=== PATIENT | male | born 1950 | race Caucasian/White ===

== ENCOUNTER 2018-11-27 22:57 | Inpatient (IN) | payer MEDICARE ==
[~2018-11-27] VITALS: Ht 182.9 cm; Wt 98.0 kg
[~2018-11-27 22:57] MED LIST: ASPIRIN81 MG PO; AUGMENTIN875TAB PO; GLYB/METFO5 MG/500 M OR; LEVEMIR1000 UNITS SC; SIMVASTATIN20 MG PO; ZESTRIL5 MG PO
--- NOTE | 2018-11-27 22:58 | NUR ---
BY WC TO ROOM
[2018-11-27] MEDS ORDERED: LOSARTAN POT50 MG PO (23:47)
[2018-11-27] MEDS ORDERED: LANTUS SOLOSTAR SC (23:47)
[2018-11-27] MEDS ORDERED: TOPROL XL25 M1 PO (23:48)
[2018-11-27] MEDS ORDERED: LEVOTHYROXIN100 MCG PO (23:50)
[2018-11-27] MEDS ORDERED: CIPRODEX1 ML OT (23:52)
[2018-11-27 23:56] LABS: HEMOGLOBIN 11.3 g/dl (14.0-18.0); IMMATURE GRANULOCYTES 0.2 % (0.0-5.0); MEAN CELL VOLUME 95.2 fL CALC (80.0-100.0); MEAN CORPUSCULAR HGB 31.7 pG CALC (26.0-32.0); MEAN CORPUSCULAR HGB CONC 33.2 g/L CALC (32.0-36.0); NEUT# 3.53 thou/uL (1.82-7.42); RED BLOOD COUNT 3.57 mill/uL (4.70-6.10); RED CELL DISTRI WIDTH 13.1 % (11.5-15.5)
--- NOTE | 2018-11-28 00:10 | NUR ---
NUMBNESS RESOLVED. STATES NO DIZZINESS....JUST LIKE A LOSS OF BALANCE WHEN HE STANDS UP.
[2018-11-28 00:14] LABS: ALBUMIN 4.3 g/dL (3.2-5.0); ALKALINE PHOSPHATASE 50 u/l (38-126); ANION GAP 12 (6-22 (CALC)); BILIRUBIN, TOTAL 0.3 mg/dL (0.0-1.4); BUN 20 mg/dL (8-23); BUN/CREATININE RATIO 15 (12-20 (CALC)); CARBON DIOXIDE 28 mmol/l (22-30); CHLORIDE 107 mmol/l (95-108); CREATININE 1.4 mg/dL (0.7-1.3); GFR 50 ML/MIN (>=60 (CALC)); GFR FOR AFR.AMER. > 60 ML/MIN (>=60 (CALC)); POTASSIUM 4.3 mmol/l (3.5-5.1); SGOT/AST 26 u/l (19-48); SODIUM 142 mmol/l (137-146); TOTAL PROTEIN 7.2 g/dL (6.3-8.2)
[2018-11-28 00:27] LABS: MYOGLOBIN 88 ng/mL (0 - 121)
--- NOTE | 2018-11-28 03:49 | NUR ---
PT UNABLE TO VOID AT THIS TIME. DECLINED CATH. BLOOD CULUTURES DRAWN AND ANTIBIOTICS UP.
--- NOTE | 2018-11-28 06:04 | NUR ---
ABE AWARE OF NO U/O YET.
--- NOTE | 2018-11-28 06:04 | NUR ---
REPORT TO ABE, NURSE MED SURG
--- NOTE | 2018-11-28 06:18 | NUR ---
TO FLOOR AFTER GIVEN CLONIDINE PO FOR BP.
--- NOTE | 2018-11-28 06:27 | NUR ---
PT ARRIVED TO THE FLOOR VIA STRETCHER ACCOMPANIED BY ED NURSE. PT APPEARS TO BE IN STABLE CONDITION AT THIS TIME. NO S/O DISTRESS. PT ORIENTED TO CALL SYSTEM, LIGHTS, BED, ROOM, TV.
[2018-11-28 06:38] VITALS: BP 193/82
[2018-11-28 07:42] LABS: URINE BILIRUBIN - DIPSTICK NEGATIVE (NEGATIVE); URINE BLOOD DIPSTICK SMALL (NEGATIVE); URINE COLOR YELLOW; URINE GLUCOSE - DIPSTICK 100 mg/dL (NEGATIVE); URINE KETONE NEGATIVE (NEGATIVE); URINE LEUK ESTERASE NEGATIVE (NEGATIVE); URINE NITRITE - DIPSTICK NEGATIVE (Negative); URINE PROTEIN - DIPSTICK >=300 mg/dL (NEG-TRACE); URINE SPECIFIC GRAVITY >=1.030; URINE UROBILINOGEN - DIPSTICK 0.2 E.U./dL (0.2)
[2018-11-28 07:46] LABS: BARBITURATES NEGATIVE (NEGATIVE); COCAINE NEGATIVE (NEGATIVE); METHADONE NEGATIVE (NEGATIVE); TETRAHYDROCANNABIONOL NEGATIVE (NEGATIVE); TRICYLIC ANTIDEPRESSANTS NEGATIVE (NEGATIVE)
[2018-11-28 07:47] LABS: OXCYCODONE NEGATIVE (NEGATIVE); URINE RBC 0-2 RBC/hpf (0-5); URINE WBC 0-2 WBC/hpf (0-5)
[2018-11-28 08:34] VITALS: BP 123/61
--- NOTE | 2018-11-28 08:59 | NUR ---
ASSESSMENT DONE. PT IS A&O X3. PT DENIES PAIN AT THIS TIME. RESPS EVEN AND UNLABORED. IVF INFUSING WELL. TELE IN PLACE. PT DENIES NEEDS AT THIS TIME. SAFETY PRECAUTIONS REINFROCED AND CALL LIGHT IN REACH.
--- NOTE | 2018-11-28 11:52 | NUR ---
PT IS EATING HIS LUNCH WITH NO S/S OF DISTRESS NOTED. PT STATED LEFT ARM NUMBESS COMES AND GOES. PT ABLE TO MOVE ARM. PT DENIES PAIN OR NEEDS AT THIS TIME. CALL LIGHT IN REACH.
[2018-11-28 15:51] VITALS: BP 167/68
--- NOTE | 2018-11-28 15:59 | NUR ---
PT IS VISITING WITH FRIEND IN ROOM WITH NO S/S OF DISTRESS NOTED. CALL LIGHT IN REACH.
--- NOTE | 2018-11-28 18:40 | NUR ---
PT DID A SKIN TEAR TO HIS LEFT ARM PICTURE TAKEN AND DRESSING APPLIED. PT DENEIS ANY OTHER NEEDS. CALL LIGHT IN REACH.
--- NOTE | 2018-11-28 19:35 | NUR ---
RECEIVED REPORT FROM NURSE PEREZ PATIENT SITTING IN BED WATCHING TV NO DISCOMFORTS NOTED AT THIS TIME, REMAINS ON DROPLET PRECAUTION FOR FLU, CALL LIGHT AT REACH.
[2018-11-28 19:57] VITALS: BP 160/71
--- NOTE | 2018-11-28 21:00 | NUR ---
PATIENT ALERT AND ORIENTED ABLE TO MAKE NEEDS KNOWN, DENIES PAIN OR DISCOMFORT ON DROPLET PRECAUTION, WITH AN ONGOING IV NORMAL SALINE @125CC/HR INFUSING WELL ON RAC, ON TELE SB 54, WILL CONTINUE TO MONITOR CALL LIGHT AT REACH.
[2018-11-28 23:41] VITALS: BP 158/79
[2018-11-29] VITALS (7 sets, daily range): BP systolic 145–172; BP diastolic 63–88
--- NOTE | 2018-11-29 00:53 | NUR ---
PATIENT APPEARS TO BE SLEEPING IN BED, WITH EYES CLSED, NO DISCOMFORTS NOTED AT THIS TIME, WITH EVEB UNLABORED BREATHING CALL LIGHT WITHIN REACH.
--- NOTE | 2018-11-29 05:14 | NUR ---
BP 170/92, ASYMPTOMATIC, DENIES PAIN OR DISCOMFORTS LOSARTAN AND METOPROLOL GIVEN WILL RECHECK BP.
[2018-11-29 05:44] LABS: HEMATOCRIT 32.7 % (39.0-50.0); HEMOGLOBIN 10.8 g/dl (14.0-18.0); IMMATURE GRANULOCYTES 0.5 % (0.0-5.0); MEAN CELL VOLUME 95.9 fL CALC (80.0-100.0); MEAN CORPUSCULAR HGB 31.7 pG CALC (26.0-32.0); NEUT# 4.6 thou/uL (1.82-7.42); RED BLOOD COUNT 3.41 mill/uL (4.70-6.10); RED CELL DISTRI WIDTH 12.8 % (11.5-15.5)
[2018-11-29 06:09] LABS: ALBUMIN 3.6 g/dL (3.2-5.0); ALKALINE PHOSPHATASE 37 u/l (38-126); ANION GAP 13 (6-22 (CALC)); BILIRUBIN, TOTAL 0.4 mg/dL (0.0-1.4); BUN 20 mg/dL (8-23); BUN/CREATININE RATIO 18 (12-20 (CALC)); CARBON DIOXIDE 23 mmol/l (22-30); CHLORIDE 109 mmol/l (95-108); CREATININE 1.1 mg/dL (0.7-1.3); GFR > 60 ML/MIN (>=60 (CALC)); GFR FOR AFR.AMER. > 60 ML/MIN (>=60 (CALC)); POTASSIUM 4.4 mmol/l (3.5-5.1); SGOT/AST 24 u/l (19-48); SODIUM 141 mmol/l (137-146); TOTAL PROTEIN 6.4 g/dL (6.3-8.2)
--- NOTE | 2018-11-29 07:15 | NUR ---
PT REPORT RECIEVED FROM JAKE MENDEZ. PT SLEEPING. NO S/S OF DISTRESS. CALL LIGHT IN REACH. WILL CONTINUE TO MONITOR.
--- NOTE | 2018-11-29 08:58 | NUR ---
PT A/O X3. SPEECH IS CLEAR. RESP EVEN AND UNLABORED. LUNG SOUNDS CLEAR. TELE IN PLACE. BOWEL SOUNDS ACTIVE X4. STRONG RADIAL AND PEDAL PULSES. #18 RAC NS @100. SITE APPEARS HEALTHY. PT HAS A HEALING LT ARM SKIN TEAR. PT DENIES ANY PAIN; BUT C/O IMBALANCE WHEN AMBULATING. DISCUSSED W/ PT I WILL LET MD KNOW. PT STATES UNDERSTANDING. SAFETY PRECAUTIONS IN PLACE. DROPLET PRECAUTIONS. CALL LIGHT IN REACH. WILL CONTINUE TO MONITOR.
--- NOTE | 2018-11-29 11:38 | NUR ---
PT EATING LUNCH. NO C/O PAIN OR NEEDS. CALL LIGHT IN REACH. WILL CONTINUE TO MONITOR.
--- NOTE | 2018-11-29 12:09 | NUR ---
PT HAVING SOME NAUSEA, VOMITED 20 CC OF CLEAR YELLOW FLUID. MEDICATED W/ 4 MG ZOFRAN IV. COOL CLOTH APPLIED TO FOREHEAD. WILL CONTINUE TO MONITOR.
--- NOTE | 2018-11-29 16:00 | NUR ---
PT WATCHING TELEVISION. NO C/O PAIN OR NEEDS. IV FLUIDS INFUSING. CALL LIGHT IN REACH. WILL CONTINUE TO MONITOR.
--- NOTE | 2018-11-29 19:00 | NUR ---
RECEIVED REPORT FROM NURSE ABRAHAM, PATIENT RESTING IN BED, EYES CLOSED, CALL LIGHT AT REACH.
--- NOTE | 2018-11-29 20:00 | NUR ---
PATIENT ALERT AND ORIENTED, ABLE TO MAKE NEEDS KNOWN, REMAINS ON DROPLET PRECAUTION FOR STREP INFECTION, DENIES PAIN OR DISCOMFORTS, WITH AN ONGOING IV OF NORMAL SALINE @KVO, REMAINS ON TELE MONITORING, LAST BM 11/27, CALL LIGHT AT REACH.
[2018-11-30] VITALS (7 sets, daily range): BP systolic 146–172; BP diastolic 65–79
--- NOTE | 2018-11-30 | NUR ---
PATIENT APPEARS TO BE SLEEPING WITH EYES CLOSED, NOTED TO HAVE EVEN UNLABORED BREATHING CALL LIGHT AT REACH
--- NOTE | 2018-11-30 05:22 | NUR ---
PATIENT ALERT AND ORIENTED, DENIES PAIN OR DISCOMFORT, WITH EVEN UNLABORED BREATHING, ASSISTED TO SHOWER CALL LIGHT AT REACH.
--- NOTE | 2018-11-30 07:20 | NUR ---
PT REPORT RECIEVED FROM JAKE COLLADO. PT WATCHING TELEVISION. NO S/S OF DISTRESS. CALL LIGHT IN REACH. WILL CONTINUE TO MONITOR.
--- NOTE | 2018-11-30 08:01 | NUR ---
PT A/O X3. SPEECH IS CLEAR. RESP EVEN AND UNLABORED. LUNG SOUNDS CLEAR. TELE IN PLACE. NONPRODUCTIVE COUGH. LEJ NS @KVO. SITE APPEARS HEALTHY. BOWEL SOUNDS ACTIVE X4. STRONG RADIAL AND PEDAL PULSES. PT HAS A HEALING SKIN TEAR TO LFA. SCABBINGS NOTED TO BLE. PT DENIES ANY PAIN OR NEEDS. POC DISCUSSED. SAFETY PRECAUTIONS IN PLACE. CALL LIGHT IN REACH. WILL CONTINUE TO MONITOR.
--- NOTE | 2018-11-30 12:12 | NUR ---
PT ON PHONE. NO C/O PAIN OR NEEDS. CALL LIGHT IN REACH. WILL CONTINUE TO MONITOR.
--- NOTE | 2018-11-30 16:32 | NUR ---
PT WATCHING TELEVISION. NO C/O PAIN OR NEEDS. CALL LIGHT IN REACH. WILL CONTINUE TO MONITOR.
--- NOTE | 2018-11-30 19:28 | NUR ---
PT IS IN HIGH FOWLERS POSITION W/CALL LIGHT IN HAND. REPORT HAS BEEN RECEIVED FROM DAY NURSE. POC DISCUSSED W/PT AND DAY NURSE AT BEDSIDE. PT DENIES ANY OTHER NEEDS AT THIS TIME. PT ENCOURAGED TO CALL NEEDS ARISE.
--- NOTE | 2018-11-30 20:33 | NUR ---
PT ASSESSED, BP 172/79,HR61. ATTEMPTED TO MEDICATE PT W/PRN MEDICATION HYDRALAZINE/PT REFUSED MEDICATION. I PROVIDED VERBAL EDUCATION TO PT REGARDING ELEVATED BP PHYSICIANS RECOMMENDATION FOR MEDICATION FOR SBP >170. PT REFUSED MEDICATION. WILL CONTINUE TO MONITOR. LUNG SOUNDS ARE CLEAR FOR ME, ABD SOFT NON-TENDER, REPORTS 1X STOOL THIS AFTERNOON, REPORTS NORMAL URINATION W/OUT DIFFICULTY OR PAIN. SKIN APPEARS INTACT, NEURO'S APPEAR INTACT. NO EDEMA NOTED. PT DENIES ANY OTHER NEEDS OF ASSISTANCE AT THIS TIME. CALL LIGHT IS AT SIDE AND PT HAS BEEN ENCOURAGED TO CALL NEEDS ARISE.
--- NOTE | 2018-11-30 23:50 | NUR ---
PT MEDICATED W/PO ANTIBIOTIC THERAPY ORDERS PROVIDE. V/S ARE BEING ASSESSED AT THIS TIME. IVF ARE RUNNING KVO. PT WAS SLEEPING WE ENTERED THE ROOM. DENIES ANY OTHER NEEDS AT THIS TIME. CALL LIGHT AT SIDE.
--- NOTE | 2018-11-30 23:58 | NUR ---
PT MEDICATED FOR ELEVATED BP. DENIES ANY OTHER NEEDS.
[2018-12-01] VITALS (9 sets, daily range): BP systolic 147–181; BP diastolic 70–85
--- NOTE | 2018-12-01 04:55 | NUR ---
PT MEDICATED W/IV HYDRALAZINE FOR ELEVATED BP. PT STATES THAT HE IS A LITTLE NAUSIATED, BUT REFUSED ZOFRAN STATING THAT IT DIDN'T HELP EARLIER TODAY WHEN GIVEN. PT PROVIDED EMESIS BAG AND WARM WASHCLOTH FOR COMFORT MEASURES. DENIES ANY OTHER NEEDS, DENIES ICE-CHIPS. CALL LIGHT AT SIDE AND PT ENCOURAGED TO CALL.
--- NOTE | 2018-12-01 07:10 | NUR ---
REPORT RECEIVED FROM ABERN;PT RESTING IN SEMI FOWLERS POSITION;INTRODUCED SELF TO PT AND POC DISCUSSED;RESPIRATIONS EVEN AND UNLABORED ON RA;PT DENIES ANY CURRENT PAIN OR DISCOMFORTS,PAIN SCALE AND REPORTING EDUCATED;TELE MONITORING IN PLACE;IV FLUIDS INFUSING TO LEJ WITH EASE;ACCUCHECK 140, NO COVERAGE NEEDED AT THIS TIME;PT ENCOURAGED TO CALL FOR ASSISTANCE IF NEEDED;FALL PRECAUTIONS IN PLACE WITH BED IN THE LOWEST POSITION AND CALL LIGHT IN REACH;WILL CONTINUE TO MONITOR
--- NOTE | 2018-12-01 08:20 | NUR ---
PT RESTING IN SEMI FOWLERS POSITION TALKING ON THE PHONE, A&O X4;VS OBTAINED AND ASSESSMENT COMPLETED, CURRENT BP 181/75 HR 64. ALL MORNING MEDICATION TO BE ADMINISTERED;PT DENIES ANY CURRENT PAIN BUT DOES REPORT CONTINUED NUMBESS TO LEFT ARM, MOPHEAD SEWER REMAINS STRONG AND CAP REFILL LESS THAN 3 SECONDS;RESPIRATIONS EVEN AND UNLABORED ON RA,CLEAR LUNG SOUNDS;ABDOMEN SOFT ON PALPATION AND ACTIVE IN ALL 4 QUADRANTS;WEAK PEDAL PULSES;SKIN INTACT;TELE MONITORING IN PLACE;#20G TO LEJ INFUSING NS @ KVO PER ORDER;PT DENIES ANY ADDITIONAL NEEDS AND IS ENCOURAGED TO CALL FOR ASSISTANCE IF NEEDED;CALL LIGHT IN REACH;WILL CONTINUE TO MONITOR
--- NOTE | 2018-12-01 11:15 | NUR ---
PT RESTING IN SEMI FOWLERS POSITION WATCHING TV;RESPIRATIONS EVEN AND UNLABORED ON RA;PT DENIES ANY CURRENT PAIN OR DISCOMFORTS;IV FLUIDS INFUSING TO LEJ WITH EASE;TELE MONITORING IN PLACE;ACCUCHECK 153, PT COVERED WITH SLIDING SCALE NOVOLOG PER ORDER;ENCOURAGED TO CALL FOR ASSISTANCE IF NEEDED;CALL LIGHT IN REACH;WILL CONTINUE TO MONITOR
--- NOTE | 2018-12-01 13:41 | NUR ---
PHYSICAL THERAPY AT BEDSIDE
--- NOTE | 2018-12-01 13:46 | NUR ---
Upon entering room patient was resting in bed. He reports feeling tired and refused physical therapy. Evaluating PT informed of same.
--- NOTE | 2018-12-01 13:59 | NUR ---
PT TRANSPORTED TO [facility] IN STABLE CONDITION VIA WHEELCHAIR ACCOMPANIED BY VOLUNTEER.
--- NOTE | 2018-12-01 14:30 | NUR ---
PT RETURNED TO [facility] VIA WHEELCHAIR IN STABLE CONDITION ACCOMPANIED BY VOLUNTEER.
--- NOTE | 2018-12-01 15:50 | NUR ---
PT APPEARS TO BE SLEEPING IN SEMI FOWLERS POSITION;RESPIRATIONS EVEN AND UNLABORED ON RA;NO S/S OF DISTRESS NOTED;TELE MONITORING IN PLACE;#20G TO LEJ INFUSING NS @ KVO PER ORDER;ALL SAFETY PRECAUTIONS IN PLACE WITH BED IN THE LOWEST POSITION AND CALL LIGHT IN REACH;WILL CONTINUE TO MONITOR
--- NOTE | 2018-12-01 19:45 | NUR ---
PT ASSESSED AND POC DISCUSSED W/PT. NO NEW EDEMA NOTED, LUNG SOUNDS ARE CLEAR, ABD SOFT NON-TENDER W/ACTIVE BOWEL SOUNDS. REPORTS STOOL X2 THIS DAY. DENIES ANY NEEDS AT THIS TIME OR ANY NEW SYMPTOMS. WILL CONTINUE TO MONITOR FOR BP AND NEEDS. CALL LIGHT AT SIDE AND PT ENCOURAGED TO CALL IF HE NEEDS TO GET UP OR IF ANY NEEDS ARISE.
--- NOTE | 2018-12-02 00:14 | NUR ---
PT MEDICATED W/PO ANTIBOTIC THERAPY ORDERS PROVIDE. PT DENIES ANY OTHER NEEDS AIDE IS IN W/PT OBTAINING V/S. CALL LIGHT AT SIDE AND PT ENCOURAGED TO CALL
[2018-12-02 00:25] VITALS: BP 155/69
--- NOTE | 2018-12-02 03:15 | NUR ---
PT SLEEPING SOUNDLY NO S/O DISTRESS NOTED. CALL LIGHT AT SIDE.
[2018-12-02 05:09] VITALS: BP 173/79
[2018-12-02 06:10] VITALS: BP 154/71
--- NOTE | 2018-12-02 06:10 | NUR ---
ED CALLED TO REPORT 23 BEAT RUN OF V-TACH ON DYER ASSISTANT. PT ASSESSED, DENIES ANY PALPATATIONS, HEART RACING, SOB, SWEATS, PAIN OR ANY OTHER SYMPTOMS. V/S ASSESSED @ HR67, BP154/71, 02SATS 100%, RESP 16 PT DENIES ANY NEEDS AT THIS TIME. WILL NOTIFY PHYSICIAN.
--- NOTE | 2018-12-02 07:15 | NUR ---
PT REPORT RECIEVED FROM JAKE FISH. PT SLEEPING. NO S/S OF DISTRESS. CALL LIGHT IN REACH. WILL CONTINUE TO MONITOR.
[2018-12-02 07:52] VITALS: BP 173/85
--- NOTE | 2018-12-02 07:52 | NUR ---
PT A/O X3. SPEECH IS CLEAR. RESP EVEN AND UNLABORED. LUNG SOUNDS CLEAR. TELE IN PLACE. PT C/O NAUSEA. MEDICATED W/ 4 MG ZOFRAN IV. BOWEL SOUNDS ACTIVE X4. STRONG RADIAL AND PEDAL PULSES. SKIN INTACT. #20 LEJ NS @KVO. SITE APPEARS HEALTHY. PT DENIES ANY PAIN OR NEEDS. CALL LIGHT IN REACH. WILL CONTINUE TO MONITOR.
[2018-12-02] MEDS ORDERED: PLAVIX75 MG PO (08:37)
[2018-12-02] MEDS ORDERED: AMOX/K CLAV875 M1 PO (08:37)
[2018-12-02] MEDS ORDERED: ADLT ASA LOW81 MG PO (08:37)
[2018-12-02] MEDS ORDERED: AMLODIPINE BESYL5 MG PO (08:37)
[2018-12-02 09:50] VITALS: BP 155/74
--- NOTE | 2018-12-02 10:48 | NUR ---
Entered pt. room, pt. in supine position and agreed to participate in therapy session. Supine to sit (Independent), sit to stand (CGA) pt. LOB to left as he ascends to a standing position, VC for correct hand placement. Gait training with FWW, (CGA) pt. has LOB to left as we ambulate 80 feet. Pt. looks down as we ambulate, VC for head up and pt. looses balance as he raises head. Stand to sit(CGA) Vc for correct hand placement as he descends to a seated position. Sit to supine (Independent). Tray table and call velázquez by pt. side within pt. reach. AM PAC 6 score remains unchanged.
[2018-12-02 12:00] VITALS: BP 155/66
--- NOTE | 2018-12-02 14:35 | NUR ---
d/c instructions discussed w/ pt. pt states understanding. iv removed. catheter intact. pt getting dressed.
--- NOTE | 2018-12-02 14:50 | NUR ---
Discharge instructions given. Patient verbalizes understanding of same. Discharged in stable condition via [facility] with *Other. All belongings sent with pt.
--- NOTE | 2018-12-02 14:53 | NUR ---
DR. DE LA CRUZ MADE AWARE OF PT 12 PM TELE READING AFIBB 60. PT CURRENTLY AT RESIDENTIAL.
== END 2018-12-02 14:36 | DRG 64 ==
LOC: ED 22:57 → ED-I 11-28 05:19 → ED 11-28 05:42 → MS2 11-28 05:43
PROVIDERS: Emergency Medicine; ADMIT Internal Medicine; ATTEND Internal Medicine
DX: I63.9 Cerebral infarction, unspecified (principal); J18.9 Pneumonia, unspecified organism; J02.0 Streptococcal pharyngitis; I25.10 Atherosclerotic heart disease of native coronary artery without angina pectoris; E11.22 Type 2 diabetes mellitus with diabetic chronic kidney disease; I12.9 Hypertensive chronic kidney disease with stage 1 through stage 4 chronic kidney disease, or unspecified chronic kidney disease; N18.3 Chronic kidney disease, stage 3 (moderate); H61.22 Impacted cerumen, left ear; R20.0 Anesthesia of skin; R42 Dizziness and giddiness; R26.81 Unsteadiness on feet; Z95.5 Presence of coronary angioplasty implant and graft; Z79.4 Long term (current) use of insulin

== ENCOUNTER → 2021-01-17 | Outpatient (REF) | payer MEDICARE ==
[~2021-01-17] MED LIST changes: +ADLT ASA LOW81 MG PO; +AMLODIPINE BESYL5 MG PO; +AMOX/K CLAV875 M1 PO; +CIPRODEX1 ML OT; +LANTUS SOLOSTAR SC; +LEVOTHYROXIN100 MCG PO; +LOSARTAN POT50 MG PO; +PLAVIX75 MG PO; +TOPROL XL25 M1 PO
[2021-01-17 08:35] LABS: HEMATOCRIT 35.1 % (39.0-50.0); HEMOGLOBIN 11.3 g/dl (14.0-18.0); MEAN CELL VOLUME 98.9 fL CALC (80.0-100.0); MEAN CORPUSCULAR HGB 31.8 pG CALC (26.0-32.0); MEAN CORPUSCULAR HGB CONC 32.2 g/dL CAL (32.0-36.0); RED BLOOD COUNT 3.55 mill/uL (4.70-6.10)
[2021-01-17 09:14] LABS: ALBUMIN 4.3 g/dL (3.2-5.0); BILIRUBIN, TOTAL 0.4 mg/dL (0.0-1.4); CHOLESTEROL HDL RATIO 5.9 (<4.4 (CALC)); CREATININE 1.6 mg/dL (0.7-1.3); POTASSIUM 4.4 mmol/l (3.5-5.1); TOTAL PROTEIN 7.1 g/dL (6.3-8.2)
[2021-01-17 09:42] LABS: TSH, 3RD GENERATION 5.01 uIU/mL (0.47 - 4.68)
== END | disposition home or self-care (01) ==
LOC: LAB 07:31
PROVIDERS: ATTEND Nurse Practitioner
DX: E11.40 Type 2 diabetes mellitus with diabetic neuropathy, unspecified (principal); E78.49 Other hyperlipidemia; I12.9 Hypertensive chronic kidney disease with stage 1 through stage 4 chronic kidney disease, or unspecified chronic kidney disease; N18.30 Chronic kidney disease, stage 3 unspecified; Z12.5 Encounter for screening for malignant neoplasm of prostate

== ENCOUNTER 2021-07-22 03:29 | Emergency (ER) | payer MEDICARE ==
[~2021-07-22] VITALS: Ht 188 cm; Wt 95.0 kg
[2021-07-22] VITALS (11 sets, daily range): BP systolic 144–160; BP diastolic 91–103
[~2021-07-22 03:29] MED LIST changes: +LANTUS SOL100 UNIT/M SC; -LANTUS SOLOSTAR SC; -LEVOTHYROXIN100 MCG PO; +LEVOTHYROXIN125 MC1 PO
[2021-07-22 04:21] LABS: HEMATOCRIT 36.7 % (39.0-50.0); HEMOGLOBIN 11.4 g/dl (14.0-18.0); IMMATURE GRANULOCYTES 0.5 % (0.0-5.0); MEAN CELL VOLUME 101.9 fL CALC (80.0-100.0); MEAN CORPUSCULAR HGB 31.7 pG CALC (26.0-32.0); MEAN CORPUSCULAR HGB CONC 31.1 g/dL CAL (32.0-36.0); NEUT# 3.37 thou/uL (1.82-7.42); RED BLOOD COUNT 3.6 mill/uL (4.70-6.10); RED CELL DISTRI WIDTH 15.5 % (11.5-15.5)
[2021-07-22 04:40] LABS: ALBUMIN 3.8 g/dL (3.2-5.0); BILIRUBIN, TOTAL 0.5 mg/dL (0.0-1.4); CREATININE 1.8 mg/dL (0.7-1.3); POTASSIUM 4.2 mmol/l (3.5-5.1); TOTAL PROTEIN 6.6 g/dL (6.3-8.2)
[2021-07-22 06:14] LABS: URINE BILIRUBIN - DIPSTICK NEGATIVE (NEGATIVE); URINE BLOOD DIPSTICK MODERATE (NEGATIVE); URINE COLOR YELLOW; URINE GLUCOSE - DIPSTICK 100 mg/dL (NEGATIVE); URINE KETONE NEGATIVE (NEGATIVE); URINE PH 5.5 (4.5-8.0); URINE PROTEIN - DIPSTICK >=300 mg/dL (NEG-TRACE); URINE SPECIFIC GRAVITY >=1.030; URINE UROBILINOGEN - DIPSTICK 0.2 E.U./dL (0.2)
[2021-07-22 06:21] LABS: URINE LEUK ESTERASE NEGATIVE (NEGATIVE); URINE NITRITE - DIPSTICK NEGATIVE (Negative)
[2021-07-22] MEDS ORDERED: KEFLEX500 MG PO (06:21)
[2021-07-22] MEDS ORDERED: CLOTRIMAZOLE TOP (06:21)
[2021-07-22 06:25] LABS: URINE AMORPH SEDIMENT MANY hpf (NONE-FER); URINE EPITHELIAL CELLS FEW EPI/hpf (0-FEW)
[2021-07-22 06:26] LABS: URINE BACTERIA MANY hpf
== END 2021-07-22 07:04 | disposition home or self-care (01) ==
LOC: ED 03:29
DX: N48.1 Balanitis (principal); N39.0 Urinary tract infection, site not specified; E11.9 Type 2 diabetes mellitus without complications; I10 Essential (primary) hypertension; I25.2 Old myocardial infarction; Z86.16 Personal history of COVID-19; Z95.5 Presence of coronary angioplasty implant and graft; Z79.4 Long term (current) use of insulin

== ENCOUNTER 2021-07-25 09:44 | Observation (INO) | payer MEDICARE ==
[~2021-07-25] VITALS: Ht 188 cm; Wt 100.0 kg
[2021-07-25] VITALS (53 sets, daily range): BP systolic 130–170; BP diastolic 76–145
[~2021-07-25 09:44] MED LIST changes: +CLOTRIMAZOLE TOP; +KEFLEX500 MG PO
[2021-07-25 10:30] LABS: HEMATOCRIT 40.5 % (39.0-50.0); HEMOGLOBIN 12.4 g/dl (14.0-18.0); IMMATURE GRANULOCYTES 0.2 % (0.0-5.0); MEAN CELL VOLUME 102.3 fL CALC (80.0-100.0); MEAN CORPUSCULAR HGB 31.3 pG CALC (26.0-32.0); MEAN CORPUSCULAR HGB CONC 30.6 g/dL CAL (32.0-36.0); NEUT# 4.79 thou/uL (1.82-7.42); RED BLOOD COUNT 3.96 mill/uL (4.70-6.10); RED CELL DISTRI WIDTH 15.9 % (11.5-15.5)
[2021-07-25 10:41] LABS: ALBUMIN 4.2 g/dL (3.2-5.0); BILIRUBIN, TOTAL 0.7 mg/dL (0.0-1.4); CREATININE 1.6 mg/dL (0.7-1.3); POTASSIUM 4.1 mmol/l (3.5-5.1); TOTAL PROTEIN 7.3 g/dL (6.3-8.2)
[2021-07-25 10:50] LABS: ACT PARTIAL THROMBO TIME 24.7 SECONDS (20.0-32.5); INTERNATIONAL NORMALIZED RATIO 1.1 RATIO (0.7-1.3); PROTHROMBIN TIME 11.2 SECONDS (9.0-12.5)
[2021-07-25] MEDS ORDERED: BRIMONIDINE0.2 % OS (11:42)
[2021-07-25 11:56] LABS: URINE BILIRUBIN - DIPSTICK NEGATIVE (NEGATIVE); URINE BLOOD DIPSTICK MODERATE (NEGATIVE); URINE GLUCOSE - DIPSTICK NEGATIVE (NEGATIVE); URINE KETONE NEGATIVE (NEGATIVE); URINE LEUK ESTERASE NEGATIVE (NEGATIVE); URINE PROTEIN - DIPSTICK >=300 mg/dL (NEG-TRACE); URINE SPECIFIC GRAVITY >=1.030; URINE UROBILINOGEN - DIPSTICK 0.2 E.U./dL (0.2)
[2021-07-25 11:59] LABS: URINE NITRITE - DIPSTICK NEGATIVE (Negative)
[2021-07-25 12:00] LABS: URINE COLOR DK. YELLOW; URINE EPITHELIAL CELLS FEW EPI/hpf (0-FEW); URINE MUCUS MODERATE hpf (NONE-FEW)
[2021-07-25] MEDS ORDERED: LIPITOR40 M1 PO (15:55)
[2021-07-25] MEDS ORDERED: CLOPIDOGREL75 MG PO (15:55)
[2021-07-25] MEDS ORDERED: [UNRECOGNIZED DRUG - OTHER] OS (16:00)
[2021-07-25] MEDS ORDERED: XALATAN0.005 % OU (16:02)
[2021-07-25] MEDS ORDERED: BRIMONIDINE0.2 % OU (16:02)
[2021-07-26] VITALS (78 sets, daily range): BP systolic 125–157; BP diastolic 62–95
[2021-07-26 05:52] LABS: MEAN CELL VOLUME 105.1 fL CALC (80.0-100.0); MEAN CORPUSCULAR HGB CONC 29.5 g/dL CAL (32.0-36.0); RED BLOOD COUNT 5.06 mill/uL (4.70-6.10); RED CELL DISTRI WIDTH 16.4 % (11.5-15.5)
[2021-07-26 05:53] LABS: HEMATOCRIT 53.2 % (39.0-50.0); HEMOGLOBIN 15.7 g/dl (14.0-18.0)
[2021-07-26 05:56] LABS: CREATININE 1.5 mg/dL (0.7-1.3); MAGNESIUM 2.1 mg/dL (1.6-2.3); POTASSIUM 4.3 mmol/l (3.5-5.1)
[2021-07-27] VITALS (7 sets, daily range): BP systolic 121–157; BP diastolic 68–93
[2021-07-27 05:46] LABS: MEAN CELL VOLUME 102.4 fL CALC (80.0-100.0); MEAN CORPUSCULAR HGB 31.8 pG CALC (26.0-32.0); MEAN CORPUSCULAR HGB CONC 31.1 g/dL CAL (32.0-36.0); NEUT# 3.3 thou/uL (1.82-7.42); RED BLOOD COUNT 3.33 mill/uL (4.70-6.10)
[2021-07-27 06:00] LABS: BILIRUBIN, TOTAL 0.5 mg/dL (0.0-1.4); CREATININE 1.7 mg/dL (0.7-1.3); POTASSIUM 4.2 mmol/l (3.5-5.1); TOTAL PROTEIN 5.4 g/dL (6.3-8.2)
[2021-07-27 06:48] LABS: HEMATOCRIT 34.1 % (39.0-50.0); HEMOGLOBIN 10.6 g/dl (14.0-18.0)
[2021-07-28 00:17] VITALS: BP 159/91
[2021-07-28 05:40] VITALS: BP 124/67
[2021-07-28 09:18] VITALS: BP 136/66
[2021-07-28 10:30] VITALS: BP 136/66
[2021-07-28] MEDS ORDERED: LASIX 40 MG TAB40 MG PO (14:42)
== END 2021-07-28 16:25 | disposition home or self-care (01) ==
LOC: ED 09:44 → ED-I 10:13 → ED 11:37 → MS2 11:38 → ED-I 11:39 → MS2 07-26 19:54
PROVIDERS: Internal Medicine; ADMIT Hospitalist; ATTEND Hospitalist
PROC: 0T9B70Z Drainage of Bladder with Drainage Device, Via Natural or Artificial Opening (ICD-10-PCS; principal; 2021-07-25)
DX: I13.0 Hypertensive heart and chronic kidney disease with heart failure and stage 1 through stage 4 chronic kidney disease, or unspecified chronic kidney disease (principal); I50.23 Acute on chronic systolic (congestive) heart failure; E11.22 Type 2 diabetes mellitus with diabetic chronic kidney disease; N18.30 Chronic kidney disease, stage 3 unspecified; R33.9 Retention of urine, unspecified; N50.89 Other specified disorders of the male genital organs; I25.5 Ischemic cardiomyopathy; I25.10 Atherosclerotic heart disease of native coronary artery without angina pectoris; I25.2 Old myocardial infarction; T50.2X6A Underdosing of carbonic-anhydrase inhibitors, benzothiadiazides and other diuretics, initial encounter; Z91.128 Patient's intentional underdosing of medication regimen for other reason; Z86.16 Personal history of COVID-19; Z79.4 Long term (current) use of insulin; Z95.5 Presence of coronary angioplasty implant and graft; Z91.11 Patient's noncompliance with dietary regimen; Z89.411 Acquired absence of right great toe; Z86.73 Personal history of transient ischemic attack (TIA), and cerebral infarction without residual deficits; Z20.822 Contact with and (suspected) exposure to COVID-19
CPT/HCPCS: G0378

== ENCOUNTER 2021-08-21 15:12 | Observation (INO) | payer MEDICARE ==
[~2021-08-21] VITALS: Ht 188 cm; Wt 102.0 kg
[~2021-08-21 15:12] MED LIST changes: +BRIMONIDINE0.2 % OS; +BRIMONIDINE0.2 % OU; +CLOPIDOGREL75 MG PO; +LASIX 40 MG TAB40 MG PO; +LIPITOR40 M1 PO; +XALATAN0.005 % OU; +[UNRECOGNIZED DRUG - OTHER] OS
[2021-08-21 16:18] LABS: HEMATOCRIT 36.8 % (39.0-50.0); HEMOGLOBIN 11.2 g/dl (14.0-18.0); IMMATURE GRANULOCYTES 0.2 % (0.0-5.0); MEAN CELL VOLUME 103.1 fL CALC (80.0-100.0); MEAN CORPUSCULAR HGB 31.4 pG CALC (26.0-32.0); MEAN CORPUSCULAR HGB CONC 30.4 g/dL CAL (32.0-36.0); NEUT# 3.57 thou/uL (1.82-7.42); RED BLOOD COUNT 3.57 mill/uL (4.70-6.10); RED CELL DISTRI WIDTH 15.5 % (11.5-15.5)
[2021-08-21 16:30] LABS: ALBUMIN 3.5 g/dL (3.2-5.0); BILIRUBIN, TOTAL 0.7 mg/dL (0.0-1.4); CREATININE 1.6 mg/dL (0.7-1.3); POTASSIUM 4.6 mmol/l (3.5-5.1); TOTAL PROTEIN 6.4 g/dL (6.3-8.2)
[2021-08-21 18:36] VITALS: BP 147/89
[2021-08-21 19:36] VITALS: BP 138/73
[2021-08-22] VITALS (8 sets, daily range): BP systolic 129–153; BP diastolic 72–87
[2021-08-22 06:43] LABS: CREATININE 1.7 mg/dL (0.7-1.3); POTASSIUM 3.8 mmol/l (3.5-5.1)
[2021-08-22] MEDS ORDERED: BUMETANIDE1 MG PO (07:24)
[2021-08-22] MEDS ORDERED: ASPIRIN ADULT L81 M2 PO (11:14)
[2021-08-22] MEDS ORDERED: ARTIFI TEAR1 OU (11:16)
[2021-08-23] VITALS (7 sets, daily range): BP systolic 122–158; BP diastolic 67–86
[2021-08-23 05:58] LABS: CREATININE 1.5 mg/dL (0.7-1.3); POTASSIUM 3.7 mmol/l (3.5-5.1)
[2021-08-24 04:09] VITALS: BP 147/80
[2021-08-24 05:43] LABS: HEMATOCRIT 32.5 % (39.0-50.0); HEMOGLOBIN 10.1 g/dl (14.0-18.0); MEAN CELL VOLUME 101.6 fL CALC (80.0-100.0); MEAN CORPUSCULAR HGB 31.6 pG CALC (26.0-32.0); MEAN CORPUSCULAR HGB CONC 31.1 g/dL CAL (32.0-36.0); RED BLOOD COUNT 3.2 mill/uL (4.70-6.10); RED CELL DISTRI WIDTH 15.7 % (11.5-15.5)
[2021-08-24 06:04] LABS: CREATININE 1.7 mg/dL (0.7-1.3); POTASSIUM 4.1 mmol/l (3.5-5.1)
[2021-08-24 07:51] VITALS: BP 141/83
[2021-08-24 10:37] VITALS: BP 130/75
[2021-08-24 14:18] VITALS: BP 148/74
[2021-08-24 14:36] VITALS: BP 148/74
[2021-08-24 21:15] VITALS: BP 146/68
[2021-08-25] VITALS: BP 141/64
[2021-08-25 00:41] VITALS: BP 141/64
[2021-08-25 05:07] VITALS: BP 144/81
[2021-08-25 05:39] LABS: HEMOGLOBIN 11.1 g/dl (14.0-18.0); MEAN CELL VOLUME 101.4 fL CALC (80.0-100.0); MEAN CORPUSCULAR HGB 31.3 pG CALC (26.0-32.0); MEAN CORPUSCULAR HGB CONC 30.8 g/dL CAL (32.0-36.0); RED BLOOD COUNT 3.55 mill/uL (4.70-6.10); RED CELL DISTRI WIDTH 15.5 % (11.5-15.5)
[2021-08-25 06:00] LABS: CREATININE 1.6 mg/dL (0.7-1.3); POTASSIUM 3.9 mmol/l (3.5-5.1)
[2021-08-25 08:00] VITALS: BP 99/54
[2021-08-25 10:31] VITALS: BP 136/72
== END 2021-08-25 13:45 | disposition home or self-care (01) ==
LOC: ED 15:12 → ED-I 16:50 → ED 17:09 → MS2 17:10
PROVIDERS: Family Medicine; Nurse Practitioner; ADMIT Internal Medicine; ATTEND Internal Medicine
DX: I13.0 Hypertensive heart and chronic kidney disease with heart failure and stage 1 through stage 4 chronic kidney disease, or unspecified chronic kidney disease (principal); I50.9 Heart failure, unspecified; E11.22 Type 2 diabetes mellitus with diabetic chronic kidney disease; N18.30 Chronic kidney disease, stage 3 unspecified; I25.10 Atherosclerotic heart disease of native coronary artery without angina pectoris; E03.9 Hypothyroidism, unspecified; E78.00 Pure hypercholesterolemia, unspecified; I25.2 Old myocardial infarction; Z95.5 Presence of coronary angioplasty implant and graft; Z86.73 Personal history of transient ischemic attack (TIA), and cerebral infarction without residual deficits; Z86.16 Personal history of COVID-19; Z79.4 Long term (current) use of insulin; Z89.411 Acquired absence of right great toe; Z79.02 Long term (current) use of antithrombotics/antiplatelets